=== PATIENT | female | born 1985 | race African-American/Black ===

== ENCOUNTER 2016-12-18 10:26 | Inpatient (IN) ==
[2016-12-18] MEDS ORDERED: TYLENOL PO PRN (10:53)
[2016-12-18] MEDS ORDERED: PEPCID PO ONE (10:53)
[2016-12-18] MEDS ORDERED: PEPCID IV PRN (10:53)
[2016-12-18] MEDS ORDERED: PEPCID PO PRN (10:53)
[2016-12-18] MEDS ORDERED: PITOCIN 30 UNITS/LR 30 UNITS/500 ML IV.SOLN IV SCH (10:53)
[2016-12-18] MEDS ORDERED: KEFZOL 1 GM/D5W 1 GM/50 ML IVPB IV PRN (10:53)
[2016-12-18] MEDS ORDERED: REGLAN PO ONE (10:53)
[2016-12-18] MEDS ORDERED: STADOL IV PRN (10:53)
[2016-12-18] MEDS ORDERED: LR 1,000 ML IV SCH (10:53)
[2016-12-18] MEDS ORDERED: ZOFRAN IV PRN (10:53)
[2016-12-18] MEDS ORDERED: XYLOCAINE-MPF 1% INJ ONE (10:55)
[2016-12-18] MEDS ORDERED: MINERAL OIL TOP ONE (10:56)
[2016-12-18] MEDS ORDERED: SODIUM CHLORIDE 0.9% INJ SCH (11:00)
[2016-12-18] MEDS ORDERED: FENTANYL-BUPIV-NS 2 MCG-0.1% 200 ML EPIDURAL PRN (11:05)
[2016-12-18 11:17] LABS: MANUAL DIFF NEEDED? NO; URINE SOURCE VOIDED
[2016-12-18 11:19] LABS: BASO% 0.1 % (0.0-0.8); EOS# 0.04 X1000 (0.0-0.7); EOS% 0.5 % (0.0-10.0); HEMATOCRIT 34.3 % (37.0-47.0); HEMOGLOBIN 11.7 g/dL (12.0-16.0); IMM GRAN# 0.01 X1000 (0.0-0.04); IMM GRAN% 0.1 % (0.0-0.5); LYMPH# 2.19 X1000 (1.2-3.4); MCH 31.2 PG (27-31); MCHC 34.1 g/dL (33-37); MCV 91.5 FL (81-99); MONO# 0.59 X1000 (0.11-0.59); MONO% 7.3 % (1.7-9.3); MPV 8.8 FL (7.4-10.4); PLT 228 X1000 (130-400); RBC 3.75 XMIL (4.2-5.4)
[2016-12-18 11:59] LABS: BILIRUBIN URINE NEGATIVE (NEGATIVE); BLOOD URINE 1+ (NEGATIVE); CLARITY SL. CLOUDY (CLEAR); COLOR YELLOW; GLUCOSE URINE NEGATIVE (NEGATIVE); LEUKOCYTES URINE 2+ (NEGATIVE); NITRITE URINE NEGATIVE (NEGATIVE); PROTEIN URINE NEGATIVE (NEGATIVE); UROBILINOGEN URINE NORMAL
[2016-12-18] MEDS ORDERED: NAROPIN 0.2% ONE (13:03)
[2016-12-18] MEDS ORDERED: BOOSTRIX VACCINE IM ONE (14:44)
[2016-12-18] MEDS ORDERED: PITOCIN 20 UNITS/LR 20 UNITS/1,000 ML IV.SOLN IV SCH (14:44)
[2016-12-18] MEDS ORDERED: BENADRYL IV PRN (14:44)
[2016-12-18] MEDS ORDERED: XYLOCAINE-MPF 1% INJ PRN (14:44)
[2016-12-18] MEDS ORDERED: MINERAL OIL PO PRN (14:44)
[2016-12-18] MEDS ORDERED: PITOCIN 30 UNITS/LR 30 UNITS/500 ML IV.SOLN IV ONE (14:44)
[2016-12-18] MEDS ORDERED: HYDROXYZINE IM PRN (14:44)
[2016-12-18] MEDS ORDERED: BENADRYL PO PRN (14:44)
[2016-12-18] MEDS ORDERED: HYDROXYZINE PO PRN (14:44)
[2016-12-18] MEDS ORDERED: PITOCIN IM PRN (14:44)
[2016-12-18] MEDS ORDERED: M-M-R II VACCINE SUBQ ONE (14:44)
[2016-12-18] MEDS ORDERED: AMBIEN PO PRN (14:44)
[2016-12-18] MEDS ORDERED: CYTOTEC PO PRN (14:44)
[2016-12-18] MEDS ORDERED: PERCOCET-10 PO PRN (14:44)
[2016-12-18] MEDS ORDERED: PERI MEDS (DERMOPLAST/NUPERCAINAL/TUCKS) MISC PRN (14:44)
[2016-12-18] MEDS: PERICOLACE PO SCH (20:08)
[2016-12-18] MEDS: MOTRIN PO PRN (23:15)
[2016-12-19 07:03] LABS: HEMATOCRIT 30.8 % (37.0-47.0); HEMOGLOBIN 9.9 g/dL (12.0-16.0); MCH 30.1 PG (27-31); MCHC 32.1 g/dL (33-37); MCV 93.6 FL (81-99); MPV 9.2 FL (7.4-10.4); RBC 3.29 XMIL (4.2-5.4)
[2016-12-19] MEDS: MOTRIN PO PRN ×2 (09:48→22:24)
[2016-12-19] MEDS: PERICOLACE PO SCH (20:17)
[2016-12-19] MEDS: PERCOCET-5 PO PRN (22:24)
[2016-12-20 07:37] VITALS: BP 144/95
[2016-12-20] MEDS: PERCOCET-5 PO PRN (07:54)
[2016-12-20] MEDS: MOTRIN PO PRN (07:54)
== END 2016-12-20 13:55 | disposition home or self-care (01) ==
LOC: P.OPLD 10:26 → P.LD 10:29 → P.WC 17:47
PROVIDERS: ADMIT Obstetrics & Gynecology; ATTEND Obstetrics & Gynecology